=== PATIENT | female | born 1995 | race African-American/Black ===

== ENCOUNTER 2021-12-04 12:08 | Emergency (ER) | payer MEDICAID ==
[2021-12-04 12:44] LABS: BASOPHILS % (AUTO) 0.3 % (0.0-5.0); EOSINOPHILS % (AUTO) 2.6 % (0.0-8.0); HEMATOCRIT 32.6 % (36-48); LYMPHOCYTES % (AUTO) 38.5 % (21.0-51.0); MEAN CORPUSCULAR HEMOGLOBIN 31.2 pg (27.0-33.0); MEAN CORPUSCULAR HGB CONC 36.5 g/dL (32.0-36.0); MEAN CORPUSCULAR VOLUME 85.3 fL (79-99); MONOCYTES % (AUTO) 5.3 % (3.0-13.0); PLATELET COUNT (AUTO) 395 K/uL (130-400); RED BLOOD CELL COUNT(AUTO) 3.82 MIL/uL (4.00-5.50); RED CELL DISTRIBUTION WIDTH 13.2 % (11.0-15.5); WHITE BLOOD COUNT (AUTO) 6.6 K/uL (4.8-10.8)
[2021-12-04 12:50] LABS: APPEARANCE,URINE CLEAR (CLEAR); BILIRUBIN,URINE NEGATIVE (NEGATIVE); COLOR,URINE YELLOW (YELLOW); GLUCOSE, URINE (UA) NEGATIVE (NEGATIVE); KETONES,URINE NEGATIVE (NEGATIVE); LEUKOCYTE ESTERASE ,URINE NEGATIVE (NEGATIVE); NITRATE,URINE NEGATIVE (NEGATIVE); OCCULT BLOOD,URINE NEGATIVE (NEGATIVE); PH,URINE 8.5 (5.0-8.0); PROTEIN,URINE NEGATIVE (NEGATIVE); UROBILINOGEN,URINE 0.2 mg/dL (0.2-1.0)
[2021-12-04 12:51] LABS: HCG,QUALITATIVE URINE POSITIVE (NEGATIVE)
[2021-12-04 12:54] LABS: CREATININE 0.6 mg/dL (0.5-1.5); POTASSIUM 3.9 mmol/L (3.5-5.1)
[2021-12-04] MEDS ORDERED: ACETAMINOPHEN 500 MG TABLET PO ONE (13:00)
[2021-12-04 13:20] LABS: ALBUMIN 3.6 g/dL (3.5-5.0); TOTAL PROTEIN, SERUM 7.2 g/dL (6.0-8.3)
[2021-12-04 14:25] VITALS: BP 93/58
[2021-12-04] MEDS ORDERED: ACET-66 PO (15:29)
== END 2021-12-04 15:43 | disposition home or self-care (01) ==
LOC: EDH 12:08
DX: O26.891 Other specified pregnancy related conditions, first trimester (principal); R10.32 Left lower quadrant pain; R10.2 Pelvic and perineal pain; Z3A.01 Less than 8 weeks gestation of pregnancy
CPT/HCPCS: 36415; 76801; 80053; 81003; 81025; 84702; 85025

== ENCOUNTER 2022-06-10 14:21 | Observation (INO) | payer MEDICAID ==
[~2022-06-10] VITALS: Ht 154.9 cm; Wt 66.2 kg
[~2022-06-10 14:21] MED LIST: ACET-66 PO
[2022-06-10 15:18] LABS: APPEARANCE,URINE CLOUDY (CLEAR); BILIRUBIN,URINE NEGATIVE (NEGATIVE); COLOR,URINE LIGHT-YELLOW (YELLOW); GLUCOSE, URINE (UA) NEGATIVE (NEGATIVE); KETONES,URINE NEGATIVE (NEGATIVE); LEUKOCYTE ESTERASE ,URINE NEGATIVE Leu/uL (NEGATIVE); NITRATE,URINE NEGATIVE (NEGATIVE); OCCULT BLOOD,URINE NEGATIVE (NEGATIVE); PROTEIN,URINE 10 mg/dL (NEGATIVE); UROBILINOGEN,URINE 0.2 mg/dL (0.2-1.0)
[2022-06-10 15:34] LABS: MUCUS,URINE RARE LPF (None Seen); RBC,URINE 0-1 /HPF (0-1); SQUAMOUS EPITHELIAL CELL,UR FEW /HPF (0-2); YEAST,URINE BUDDING RARE /HPF (None Seen)
[2022-06-10] MEDS ORDERED: LACTATED RINGERS 1000ML 1,000 ML IV ONE (17:43)
[2022-06-10] MEDS ORDERED: LACTATED RINGERS 1000ML 1,000 ML IV SCH (19:00)
[2022-06-10 20:02] VITALS: BP 107/70
[2022-06-10] MEDS ORDERED: MAG-55 PO (21:26)
== END 2022-06-10 21:39 | disposition home or self-care (01) ==
LOC: EDH 14:21 → LDH 14:22 → EDHIP 14:37 → EDH 14:37 → EDHIP 19:40
PROVIDERS: ADMIT Internal Medicine; ATTEND Internal Medicine
DX: O99.613 Diseases of the digestive system complicating pregnancy, third trimester (principal); K21.9 Gastro-esophageal reflux disease without esophagitis; O99.343 Other mental disorders complicating pregnancy, third trimester; F41.9 Anxiety disorder, unspecified; O26.893 Other specified pregnancy related conditions, third trimester; R10.2 Pelvic and perineal pain; Z3A.32 32 weeks gestation of pregnancy
CPT/HCPCS: 96360; 96361; 99284; 81001; 93005; G0378 ×3; J7120 ×2

== ENCOUNTER 2022-07-29 20:21 | Observation (INO) | payer MEDICAID ==
[~2022-07-29] VITALS: Ht 154.9 cm; Wt 62.6 kg
[~2022-07-29 20:21] MED LIST changes: +MAG-55 PO
[2022-07-29 20:59] LABS: APPEARANCE,URINE CLEAR (CLEAR); BILIRUBIN,URINE NEGATIVE (NEGATIVE); COLOR,URINE COLORLESS (YELLOW); GLUCOSE, URINE (UA) NEGATIVE (NEGATIVE); KETONES,URINE NEGATIVE (NEGATIVE); LEUKOCYTE ESTERASE ,URINE 500 Leu/uL (NEGATIVE); NITRATE,URINE NEGATIVE (NEGATIVE); OCCULT BLOOD,URINE LARGE (NEGATIVE); PROTEIN,URINE NEGATIVE (NEGATIVE); UROBILINOGEN,URINE 0.2 mg/dL (0.2-1.0)
[2022-07-29 21:22] LABS: BACTERIA,URINE RARE /HPF (None Seen); MUCUS,URINE RARE LPF (None Seen); SQUAMOUS EPITHELIAL CELL,UR RARE /HPF (0-2); WBC,URINE 26-50 /HPF (0-1)
[2022-07-29 21:23] LABS: BASOPHILS % (AUTO) 0.4 % (0.0-5.0); EOSINOPHILS % (AUTO) 2.5 % (0.0-8.0); HEMATOCRIT 31.6 % (36-48); LYMPHOCYTES % (AUTO) 33.5 % (21.0-51.0); MEAN CORPUSCULAR HEMOGLOBIN 32.8 pg (27.0-33.0); MEAN CORPUSCULAR HGB CONC 35.8 g/dL (32.0-36.0); MEAN CORPUSCULAR VOLUME 91.6 fL (79-99); MONOCYTES % (AUTO) 10.5 % (3.0-13.0); NEUTROPHILS % (AUTO) 52.1 % (40.0-77.0); PLATELET COUNT (AUTO) 344 K/uL (130-400); RED BLOOD CELL COUNT(AUTO) 3.45 MIL/uL (4.00-5.50); RED CELL DISTRIBUTION WIDTH 13.6 % (11.0-15.5); WHITE BLOOD COUNT (AUTO) 9.2 K/uL (4.8-10.8)
[2022-07-29 21:29] LABS: INR 1.03 (0.85-1.15); PROTHROMBIN TIME 11.2 SEC (9.6-11.6)
[2022-07-29 21:31] LABS: PARTIAL THROMBOPLASTIN TIME 26.3 SEC (26.3-35.5)
[2022-07-29 21:38] LABS: CREATININE 0.7 mg/dL (0.5-1.5); POTASSIUM 3.8 mmol/L (3.5-5.1)
[2022-07-29 21:41] LABS: ALBUMIN 3.2 g/dL (3.5-5.0); TOTAL PROTEIN, SERUM 6.7 g/dL (6.0-8.3); URIC ACID 6.2 mg/dL (2.6-7.2)
[2022-07-29] MEDS: LACTATED RINGERS 1000ML 1,000 ML IV SCH ×2 (21:45→22:00)
[2022-07-29] MEDS ORDERED: HYDRALAZINE 20MG/ML VIAL ONE (21:56)
[2022-07-29] MEDS ORDERED: HYDRALAZINE 20MG/ML VIAL IM ONE (22:00)
[2022-07-29] MEDS: BUTALB/ACETAMINOPHEN/CAFFEINE 1 EACH TABLET PO PRN (22:10)
[2022-07-29 23:00] VITALS: BP 131/73
[2022-07-30] MEDS ORDERED: DIPHENHYDRAMINE HCL 25 MG CAPSULE PO PRN (00:30)
[2022-07-30] MEDS ORDERED: ONDANSETRON 4MG INJ IVP PRN (00:30)
[2022-07-30] MEDS: IBUPROFEN 600 MG TABLET PO PRN ×2 (00:52→08:24)
[2022-07-30] MEDS: BUTALB/ACETAMINOPHEN/CAFFEINE 1 EACH TABLET PO PRN ×2 (03:10→09:47)
[2022-07-30 04:00] VITALS: BP 128/75
[2022-07-30] MEDS: LACTATED RINGERS 1000ML 1,000 ML IV SCH ×2 (05:15→05:16)
[2022-07-30 08:00] VITALS: BP 148/89
[2022-07-30] MEDS ORDERED: LABETALOL HCL 100 MG TABLET PO ONE (10:00)
[2022-07-30 11:11] VITALS: BP 119/75
== END 2022-07-30 10:55 | disposition home or self-care (01) ==
LOC: EDH 20:21 → LDH 20:22 → WSH 21:14
PROVIDERS: ADMIT Internal Medicine; ATTEND Internal Medicine
DX: O16.5 Unspecified maternal hypertension, complicating the puerperium (principal); O90.9 Complication of the puerperium, unspecified; R51.9 Headache, unspecified
CPT/HCPCS: 96372; 84550; 80053; 85025; 85384; 85610; 85730; 87088; 81001; 36415; 96360; 96361; G0378 ×14; J7120 ×2; J0360

== ENCOUNTER 2022-10-10 19:15 | Emergency (ER) | payer MEDICAID ==
[~2022-10-10] VITALS: Ht 154.9 cm; Wt 86.2 kg
[2022-10-10] MEDS ORDERED: SOLU-MEDROL 125MG VIAL IVP ONE (19:30)
[2022-10-10] MEDS ORDERED: IPRATROPIUM/ALBUTEROL SULFATE 3 ML SOLUTION IH ONE (19:30)
[2022-10-10] MEDS ORDERED: 0.9%NACL 1000ML 1,000 ML IV ONE (19:30)
[2022-10-10] MEDS ORDERED: DiphenhydrAMINE HCL 50 MG/ML VIAL IV ONE (19:30)
[2022-10-10] MEDS ORDERED: FAMOTIDINE 20MG VIAL IV ONE (19:30)
[2022-10-10 19:58] LABS: BASOPHILS % (AUTO) 0.5 % (0.0-5.0); EOSINOPHILS % (AUTO) 3.5 % (0.0-8.0); HEMATOCRIT 33.2 % (36-48); LYMPHOCYTES % (AUTO) 40.9 % (21.0-51.0); MEAN CORPUSCULAR HEMOGLOBIN 31.3 pg (27.0-33.0); MEAN CORPUSCULAR HGB CONC 36.1 g/dL (32.0-36.0); MEAN CORPUSCULAR VOLUME 86.7 fL (79-99); MONOCYTES % (AUTO) 7.9 % (3.0-13.0); NEUTROPHILS % (AUTO) 47.1 % (40.0-77.0); PLATELET COUNT (AUTO) 409 K/uL (130-400); RED BLOOD CELL COUNT(AUTO) 3.83 MIL/uL (4.00-5.50); RED CELL DISTRIBUTION WIDTH 12.6 % (11.0-15.5); WHITE BLOOD COUNT (AUTO) 8.3 K/uL (4.8-10.8)
[2022-10-10 20:26] LABS: CREATININE 0.6 mg/dL (0.5-1.5); POTASSIUM 3.9 mmol/L (3.5-5.1)
[2022-10-10 20:31] LABS: TOTAL PROTEIN, SERUM 7.6 g/dL (6.0-8.3)
[2022-10-10 20:43] LABS: APPEARANCE,URINE CLEAR (CLEAR); BILIRUBIN,URINE NEGATIVE (NEGATIVE); COLOR,URINE COLORLESS (YELLOW); GLUCOSE, URINE (UA) NEGATIVE (NEGATIVE); KETONES,URINE NEGATIVE (NEGATIVE); LEUKOCYTE ESTERASE ,URINE NEGATIVE Leu/uL (NEGATIVE); NITRATE,URINE NEGATIVE (NEGATIVE); OCCULT BLOOD,URINE NEGATIVE (NEGATIVE); PROTEIN,URINE NEGATIVE (NEGATIVE); UROBILINOGEN,URINE 0.2 mg/dL (0.2-1.0)
[2022-10-10 20:44] VITALS: BP 104/67
[2022-10-10] MEDS ORDERED: FAMO20TA8 PO (21:39)
[2022-10-10] MEDS ORDERED: PRED50TA2 PO (21:39)
[2022-10-10] MEDS ORDERED: ALBU2SYR3 PO (21:39)
[2022-10-10] MEDS ORDERED: EPIN0.3P3 IJ (21:39)
[2022-10-10] MEDS ORDERED: DIPH25TA22 PO (21:39)
== END 2022-10-10 21:48 | disposition home or self-care (01) ==
LOC: EDH 19:15
DX: T78.40XA Allergy, unspecified, initial encounter (principal); Z79.52 Long term (current) use of systemic steroids; Z88.5 Allergy status to narcotic agent; Z88.8 Allergy status to other drugs, medicaments and biological substances; Z20.822 Contact with and (suspected) exposure to COVID-19; X58.XXXA Exposure to other specified factors, initial encounter
CPT/HCPCS: 99284; 96374; 96375; 87635; 96361; 80053; 85025; 83605; 81003; 36415; 94640; C9803; J1200; J2930; S0028; J3490

== ENCOUNTER 2023-08-09 14:32 | Emergency (ER) | payer MEDICAID, OTHER ==
[~2023-08-09] VITALS: Ht 154.9 cm; Wt 49.9 kg
[~2023-08-09 14:32] MED LIST changes: +ALBU2SYR3 PO; +DIPH25TA22 PO; +EPIN0.3P3 IJ; +FAMO20TA8 PO; +PRED50TA2 PO
[2023-08-09] MEDS: CYCLOBENZAPRINE HCL 10 MG TABLET PO ONE (16:11)
[2023-08-09] MEDS: KETOROLAC 15MG/ML VIAL (15MG/ML) IM ONE (16:11)
[2023-08-09] MEDS ORDERED: CYCL5TAB PO (17:32)
[2023-08-09] MEDS ORDERED: IBUP-2076 PO (17:32)
[2023-08-09 17:49] VITALS: BP 121/64; PULSE 72; RESP 18; O2SAT 100
== END 2023-08-09 17:56 | disposition home or self-care (01) ==
LOC: EDH 14:32
DX: S16.1XXA Strain of muscle, fascia and tendon at neck level, initial encounter (principal); V89.2XXA Person injured in unspecified motor-vehicle accident, traffic, initial encounter; Y93.I9 Activity, other involving external motion; Y92.89 Other specified places as the place of occurrence of the external cause; Y99.8 Other external cause status
CPT/HCPCS: 99284; 72040; 72170; 72072; 96372; J1885